=== PATIENT | male | born 1970 | race African-American/Black ===

== ENCOUNTER 2017-03-21 23:49 | Emergency (ER) | payer OTHER ==
[~2017-03-21] VITALS: Ht 175.3 cm; Wt 98.5 kg
[~2017-03-21 23:49] MED LIST: CLONAZEPAM0.5 MG PO; NORVIR100 MG PO; REMERON30 M2 PO; REYATAZ300 MG PO; TRUVADA1 TABLET PO
[2017-03-22] MEDS ORDERED: DELTASONE20 M1 PO (00:12)
[2017-03-22] MEDS ORDERED: ATARAX,VISTARIL25 MG PO (00:12)
[2017-03-22] MEDS ORDERED: EMVERM100 MG PO (00:12)
[2017-03-22 00:27] VITALS: BP 139/90
== END 2017-03-22 00:27 | disposition home or self-care (01) ==
LOC: EME 23:49
DX: L30.9 Dermatitis, unspecified (principal)
CPT/HCPCS: 99281; 99283; J7512; Q0177

== ENCOUNTER 2017-03-23 06:42 | Emergency (ER) | payer OTHER ==
[~2017-03-23] VITALS: Ht 175.3 cm; Wt 98.7 kg
[~2017-03-23 06:42] MED LIST changes: +ATARAX,VISTARIL25 MG PO; +DELTASONE20 M1 PO; +EMVERM100 MG PO
[2017-03-23 06:46] VITALS: BP 159/90
[2017-03-23 08:50] LABS: AMPHETAMINE NEGATIVE (500 ng/mL); BARBITURATES NEGATIVE (200 ng/mL); BENZODIAZEPINES NEGATIVE (150 ng/mL); COCAINE PRESUMPTIVE POSITIVE (150 ng/mL); METHADONE NEGATIVE (200 ng/mL); METHAMPHETAMINE NEGATIVE (500 ng/mL); OPIATES (MORPHINE) PRESUMPTIVE POSITIVE (100 ng/mL); PHENCYCLIDINE NEGATIVE (25 ng/mL); THC CANNABINOIDS NEGATIVE (50 ng/mL); TRICYCLIC ANTIDEPRESSANTS NEGATIVE (300 ng/mL)
[2017-03-23 08:51] LABS: ADD MEDTOX COMMENT Y; INTERNAL CONTROLS VALID? YES; OXYCODONE NEGATIVE (100 ng/mL); PROPOXYPHENE NEGATIVE (300 ng/mL)
== END 2017-03-23 08:39 | disposition home or self-care (01) ==
LOC: EME 06:42
PROVIDERS: Emergency Medicine
DX: R44.2 Other hallucinations (principal); F14.10 Cocaine abuse, uncomplicated; H57.10 Ocular pain, unspecified eye; B20 Human immunodeficiency virus [HIV] disease; F17.200 Nicotine dependence, unspecified, uncomplicated
CPT/HCPCS: 84999; 90832; 99281; 99283

== ENCOUNTER 2017-09-21 22:00 | Emergency (ER) | payer OTHER ==
[~2017-09-21] VITALS: Ht 175.3 cm; Wt 79.5 kg
[2017-09-22] MEDS ORDERED: ULTRAM50 MG PO (00:19)
[2017-09-22 00:52] VITALS: BP 128/90
== END 2017-09-22 01:00 ==
LOC: EME 22:00
PROC: 0RSJXZZ Reposition Right Shoulder Joint, External Approach (ICD-10-PCS; principal; 2017-09-21)
DX: S43.004A Unspecified dislocation of right shoulder joint, initial encounter (principal); X58.XXXA Exposure to other specified factors, initial encounter; Y92.149 Unspecified place in prison as the place of occurrence of the external cause; F17.200 Nicotine dependence, unspecified, uncomplicated
CPT/HCPCS: 73030; 99281; 99284; J3010

== ENCOUNTER 2017-10-16 22:29 | Emergency (ER) | payer OTHER ==
[~2017-10-16] VITALS: Ht 175.3 cm; Wt 81.8 kg
[~2017-10-16 22:29] MED LIST changes: +ULTRAM50 MG PO
[2017-10-16 23:44] LABS: EOSINOPHIL COUNT 0.1 K/uL (0-0.3); HEMATOCRIT 36.8 % (38.0-50.0); IMMATURE GRANULOCYTE (%) 0.2 % (0.0-0.7); INSTRUMENT ABS NEUTROPHIL CT 2.7 K/uL; LYMPHOCYTE COUNT 2.4 K/uL (1.0-2.8); MCH 27.7 PG (29.0-34.0); MCHC 33.2 G/DL (30.0-36.0); MCV 83.4 FL (86-99); MEAN PLAT.VOLUME 9.4 uM^3 (9.0-12.4); MONOCYTE COUNT 0.8 K/uL (0-0.8); NEUTROPHIL (%) 44.6 % (45-76); NEUTROPHIL COUNT 2.7 K/uL (1.8-6.4); PLATELET COUNT 331 K/uL (156-360); RBC DIS.WIDTH-CV 13.5 % (11.8-14.6); RBC DIS.WIDTH-SD 41.3 % (39-53); RED BLOOD COUNT 4.41 M/uL (4.00-5.50); WHITE BLOOD COUNT 5.9 K/uL (4.1-10.2)
[2017-10-16 23:52] LABS: CHLORIDE 104 mEq/L (99-109); POTASSIUM 3.7 mEq/L (3.7-5.4); SODIUM 142 mEq/L (136-147)
[2017-10-16 23:54] LABS: GLUCOSE 110 mg/dL (70-99)
[2017-10-16 23:55] LABS: ANION GAP 15 MEQ/L (2-14)
[2017-10-16 23:57] LABS: GFR ESTIMATE (CALCULATED) > 59 mL/min/; SERUM ETHYL ALCOHOL 176 mg/dL
[2017-10-16 23:58] LABS: UREA NITROGEN (BUN) 8 mg/dL (9-23)
[2017-10-17 06:32] LABS: ADD MEDTOX COMMENT Y; AMPHETAMINE NEGATIVE (500 ng/mL); BARBITURATES NEGATIVE (200 ng/mL); BENZODIAZEPINES PRESUMPTIVE POSITIVE (150 ng/mL); COCAINE PRESUMPTIVE POSITIVE (150 ng/mL); INTERNAL CONTROLS VALID? YES; METHADONE NEGATIVE (200 ng/mL); METHAMPHETAMINE NEGATIVE (500 ng/mL); OPIATES (MORPHINE) PRESUMPTIVE POSITIVE (100 ng/mL); OXYCODONE NEGATIVE (100 ng/mL); PHENCYCLIDINE NEGATIVE (25 ng/mL); PROPOXYPHENE NEGATIVE (300 ng/mL); THC CANNABINOIDS NEGATIVE (50 ng/mL); TRICYCLIC ANTIDEPRESSANTS NEGATIVE (300 ng/mL)
[2017-10-17 07:19] LABS: BENZODIAZEPINES QUANT VALUE 0 NG/ML; BENZODIAZEPINES, URINE SCREEN Negative (200 ng/mL)
[2017-10-17 14:29] VITALS: BP 143/83
== END 2017-10-17 14:31 | disposition home or self-care (01) ==
LOC: EME 22:29
PROVIDERS: Emergency Medicine
DX: F10.129 Alcohol abuse with intoxication, unspecified (principal); S42.031A Displaced fracture of lateral end of right clavicle, initial encounter for closed fracture; X58.XXXA Exposure to other specified factors, initial encounter; F19.94 Other psychoactive substance use, unspecified with psychoactive substance-induced mood disorder; F11.90 Opioid use, unspecified, uncomplicated; F32.9 Major depressive disorder, single episode, unspecified; Y90.6 Blood alcohol level of 120-199 mg/100 ml; Z59.0 Homelessness; F17.200 Nicotine dependence, unspecified, uncomplicated
CPT/HCPCS: 73030; 80048; 84999; 85025; 90837; 99281; 99283; G0480; L3650

== ENCOUNTER 2017-10-31 21:38 | Inpatient (IN) | payer OTHER ==
[~2017-10-31] VITALS: Ht 175.3 cm; Wt 76.0 kg
[2017-10-31 22:02] LABS: HEMATOCRIT 41.1 % (38.0-50.0); MCH 28.6 PG (29.0-34.0); MCHC 34.1 G/DL (30.0-36.0); RBC DIS.WIDTH-CV 14.6 % (11.8-14.6); RBC DIS.WIDTH-SD 44.9 % (39-53); RED BLOOD COUNT 4.89 M/uL (4.00-5.50); WHITE BLOOD COUNT 4.9 K/uL (4.1-10.2)
[2017-10-31 22:03] LABS: PLATELET COUNT 444 K/uL (156-360)
[2017-10-31 22:10] LABS: CHLORIDE 113 mEq/L (99-109); POTASSIUM 3.9 mEq/L (3.7-5.4); SODIUM 147 mEq/L (136-147)
[2017-10-31 22:12] LABS: GLUCOSE 118 mg/dL (70-99)
[2017-10-31 22:15] LABS: SERUM ETHYL ALCOHOL 212 mg/dL
[2017-10-31 22:16] LABS: GFR ESTIMATE (CALCULATED) > 59 mL/min/ (58.99-99999)
[2017-10-31 22:17] LABS: UREA NITROGEN (BUN) 10 mg/dL (9-23)
[2017-11-01 00:44] LABS: AMPHETAMINE NEGATIVE (500 ng/mL); BARBITURATES NEGATIVE (200 ng/mL); BENZODIAZEPINES PRESUMPTIVE POSITIVE (150 ng/mL); BUPRENORPHINE NEGATIVE (10 ng/mL); COCAINE PRESUMPTIVE POSITIVE (150 ng/mL); METHADONE NEGATIVE (200 ng/mL); METHAMPHETAMINE NEGATIVE (500 ng/mL); OPIATES (MORPHINE) NEGATIVE (100 ng/mL); OXYCODONE NEGATIVE (100 ng/mL); PHENCYCLIDINE NEGATIVE (25 ng/mL); PROPOXYPHENE NEGATIVE (300 ng/mL); THC CANNABINOIDS NEGATIVE (50 ng/mL); TRICYCLIC ANTIDEPRESSANTS NEGATIVE (300 ng/mL)
[2017-11-01 01:18] LABS: BENZODIAZEPINES, URINE SCREEN Negative (200 ng/mL)
[2017-11-01 06:11] VITALS: BP 126/84
[2017-11-01 08:02] VITALS: BP 121/73
[2017-11-01] MEDS ORDERED: STRIBILD TABLE1 EACH PO (09:10)
[2017-11-01 15:35] VITALS: BP 118/63
[2017-11-02 07:55] VITALS: BP 125/71
[2017-11-02 15:30] VITALS: BP 133/65
[2017-11-03 08:02] VITALS: BP 108/63
[2017-11-03] MEDS ORDERED: STRIBILD TABLE1 EACH PO (08:56)
[2017-11-03] MEDS ORDERED: FOLIC ACID1 MG PO (08:56)
[2017-11-03] MEDS ORDERED: AMOXICILLIN500 MG PO (08:56)
[2017-11-03] MEDS ORDERED: MIRTAZAPINE30 MG PO (08:56)
[2017-11-03] MEDS ORDERED: Thiamine,Vitamin B1 PO (08:56)
[2017-11-03] MEDS ORDERED: KETOROLAC TROME10 MG PO (09:02)
[2017-11-03 15:47] VITALS: BP 146/84
[2017-11-04 08:03] VITALS: BP 130/75
== END 2017-11-04 15:07 | disposition home or self-care (01) | DRG 881 ==
LOC: EME 21:38 → 1WEST 11-01 04:39 → EDOF 11-01 04:39 → ENRESERV 11-01 05:08 → 1WEST 11-01 05:28
DX: F32.9 Major depressive disorder, single episode, unspecified (principal); R45.851 Suicidal ideations; M25.511 Pain in right shoulder; F14.20 Cocaine dependence, uncomplicated; J02.9 Acute pharyngitis, unspecified; Z59.0 Homelessness; I10 Essential (primary) hypertension; F41.9 Anxiety disorder, unspecified; Z21 Asymptomatic human immunodeficiency virus [HIV] infection status; F17.200 Nicotine dependence, unspecified, uncomplicated; F10.229 Alcohol dependence with intoxication, unspecified; G47.00 Insomnia, unspecified
CPT/HCPCS: 80048; 84999; 85027; 90837; 97150 GO; 97165 GO; 99281; 99285; G0480; Q0177

== ENCOUNTER 2017-11-11 03:57 | Inpatient (IN) | payer OTHER ==
[~2017-11-11] VITALS: Ht 175.3 cm; Wt 76.9 kg
[~2017-11-11 03:57] MED LIST changes: +AMOXICILLIN500 MG PO; +FOLIC ACID1 MG PO; +KETOROLAC TROME10 MG PO; +MIRTAZAPINE30 MG PO; +STRIBILD TABLE1 EACH PO; +Thiamine,Vitamin B1 PO
[2017-11-11 04:14] LABS: BICARBONATE 17.8 mEq/L (22-26); CARBOXY HGB 4.2 % (0-5); METHEMOGLOBIN 0 % (0-1.5); PCO2 79 mm Hg (35-45); PO2 86 mm Hg (80-100)
[2017-11-11 04:15] LABS: COMMENTS - BLOOD GASES C+; DEVICE VENT; FI02 100 %; MECHANICAL RATE 16 resp/min; MODE ACVC; PEEP 5 CM/H20; SITE RR; TIDAL VOLUME 500 ML; TOTAL RESP RATE 16 resp/min; pH 6.96 (7.35-7.45)
[2017-11-11 04:47] LABS: ALBUMIN 3.6 g/dL (3.2-4.8); CHLORIDE 106 mEq/L (99-109); HEMATOCRIT 40.2 % (38.0-50.0); HEMOGLOBIN 12.8 G/DL (12.5-16.6); MCH 28.6 PG (29.0-34.0); MCHC 31.8 G/DL (30.0-36.0); POTASSIUM 3.6 mEq/L (3.7-5.4); RBC DIS.WIDTH-CV 14.6 % (11.8-14.6); RBC DIS.WIDTH-SD 48.5 % (39-53); RED BLOOD COUNT 4.47 M/uL (4.00-5.50); SODIUM 145 mEq/L (136-147); WHITE BLOOD COUNT 9.3 K/uL (4.1-10.2)
[2017-11-11 04:50] LABS: GLUCOSE 249 mg/dL (70-99); MCV 89.9 FL (86-99)
[2017-11-11 04:51] LABS: TOTAL BILIRUBIN 0.2 mg/dL (0.0-1.0)
[2017-11-11 04:53] LABS: CREATININE 1.5 mg/dL (0.6-1.3); GFR ESTIMATE (CALCULATED) > 59 mL/min/ (58.99-99999); SERUM ETHYL ALCOHOL 244 mg/dL
[2017-11-11 04:54] LABS: ALKALINE PHOSPHATASE 77 IU/L (3-129)
[2017-11-11 04:55] LABS: AST (GOT) 61 IU/L (2-34); UREA NITROGEN (BUN) 9 mg/dL (9-23)
[2017-11-11 04:57] LABS: ACETAMINOPHEN (TYLENOL) < 10 mcg/mL (10-30); ALT (GPT) 52 IU/L (3-49); SALICYLATE < 5.0 MG/DL (15-30)
[2017-11-11 04:58] LABS: LIPASE 174 U/L (1.0-51.0)
[2017-11-11 04:59] LABS: TROP-I INTERPRETATION NEGATIVE; TROPONIN-I < 0.01 ng/mL (0.0-0.30)
[2017-11-11 05:49] LABS: BASE EXCESS -1.1 mEq/L (-3 to +3); BICARBONATE 23.5 mEq/L (22-26); PCO2 38 mm Hg (35-45); PO2 > 583 mm Hg (80-100)
[2017-11-11 05:50] LABS: COMMENTS - BLOOD GASES C+; DEVICE VENT; FI02 100 %; MECHANICAL RATE 24 resp/min; MODE A/C; PEEP 8 CM/H20; SITE RR; TIDAL VOLUME 500 ML; TOTAL RESP RATE 34 resp/min
[2017-11-11 06:01] LABS: PLAT.SUFFICIENCY INCREASED; PLATELET CLUMPS PRESENT - PLATELET COUNT APPEARS INCREASED
[2017-11-11 06:02] LABS: PLATELET COUNT UNABLE TO REPORT K/uL (156-360)
[2017-11-11 07:28] LABS: APPEARANCE CLEAR ((CLEAR)); BILIRUBIN NEGATIVE; BLOOD SMALL; COLOR STRAW ((YELLOW)); GLUCOSE (STRIP) NEGATIVE; KETONES NEGATIVE; LEUKOCYTES NEGATIVE; NITRITE NEGATIVE; PROTEIN (STRIP) NEGATIVE; SPECIFIC GRAVITY 1.002 (1.000-1.030); UROBILINOGEN 0.2 MG/DL (0.2-1.0)
[2017-11-11 07:39] LABS: BACTERIA RARE /HPF; EPITHELIAL CELLS NONE SEEN /HPF; MUCUS NONE SEEN /LPF; RED BLOOD CELLS 0-5 /HPF (0-5); UCUL ADDED? NO; WHITE BLOOD CELLS 0-5 /HPF (0-5)
[2017-11-11 07:46] LABS: AMPHETAMINE NEGATIVE (500 ng/mL); BARBITURATES NEGATIVE (200 ng/mL); BENZODIAZEPINES PRESUMPTIVE POSITIVE (150 ng/mL); BUPRENORPHINE NEGATIVE (10 ng/mL); COCAINE NEGATIVE (150 ng/mL); METHADONE NEGATIVE (200 ng/mL); METHAMPHETAMINE NEGATIVE (500 ng/mL); OPIATES (MORPHINE) NEGATIVE (100 ng/mL); OXYCODONE NEGATIVE (100 ng/mL); PHENCYCLIDINE NEGATIVE (25 ng/mL); PROPOXYPHENE NEGATIVE (300 ng/mL); THC CANNABINOIDS NEGATIVE (50 ng/mL); TRICYCLIC ANTIDEPRESSANTS NEGATIVE (300 ng/mL)
[2017-11-11 08:00] VITALS: BP 161/104
[2017-11-11 08:23] LABS: BENZODIAZEPINES, URINE SCREEN POSITIVE (200 ng/mL)
[2017-11-11 09:00] VITALS: BP 181/114
[2017-11-11 10:00] VITALS: BP 176/111
[2017-11-11 12:00] VITALS: BP 176/111
[2017-11-11 12:05] LABS: BASOPHIL (%) 0.1 % (0-1); EOSINOPHIL (%) 0 % (0-5); HEMATOCRIT 44.8 % (38.0-50.0); HEMOGLOBIN 14.6 G/DL (12.5-16.6); IMMATURE GRANULOCYTE (%) 0.4 % (0.0-0.7); LYMPHOCYTE (%) 5.5 % (15-42); LYMPHOCYTE COUNT 1.1 K/uL (1.0-2.8); MCH 28.1 PG (29.0-34.0); MCHC 32.6 G/DL (30.0-36.0); MCV 86.3 FL (86-99); MONOCYTE (%) 10.6 % (3-12); MONOCYTE COUNT 2.2 K/uL (0-0.8); NEUTROPHIL (%) 83.4 % (45-76); NEUTROPHIL COUNT 16.8 K/uL (1.8-6.4); RBC DIS.WIDTH-CV 14.9 % (11.8-14.6); RBC DIS.WIDTH-SD 47.4 % (39-53); RED BLOOD COUNT 5.19 M/uL (4.00-5.50); WHITE BLOOD COUNT 20.2 K/uL (4.1-10.2)
[2017-11-11 12:10] LABS: PLATELET COUNT 561 K/uL (156-360)
[2017-11-11 12:15] LABS: BASE EXCESS -8.2 mEq/L (-3 to +3); CARBOXY HGB 1.4 % (0-5); METHEMOGLOBIN 1.1 % (0-1.5)
[2017-11-11 12:16] LABS: PCO2 50 mm Hg (35-45); PO2 192 mm Hg (80-100); SITE ALINE; pH 7.21 (7.35-7.45)
[2017-11-11 12:17] LABS: DEVICE 840 PB; FI02 40 %; INSPIRATION TIME 0.8 seconds; MECHANICAL RATE 12 resp/min; MODE A/C; PEEP 10 CM/H20; TIDAL VOLUME 600 ML; TOTAL RESP RATE 12 resp/min
[2017-11-11 12:24] LABS: PTT 27.9 SEC (25-37)
[2017-11-11 12:29] LABS: TROP-I INTERPRETATION POSITIVE; TROPONIN-I 1.23 ng/mL (0.0-0.30)
[2017-11-11 12:35] LABS: CHLORIDE 111 MEQ/L (99-109); MAGNESIUM 1.8 mg/dl (1.3-2.7); SODIUM 148 MEQ/L (136-147)
[2017-11-11 12:40] LABS: GFR ESTIMATE (CALCULATED) > 59 mL/min/ (58.99-99999); GLUCOSE 138 mg/dL (70-99); PHOSPHORUS 4.8 mg/dL (2.5-4.9); UREA NITROGEN (BUN) 16 mg/dL (9-23)
[2017-11-11 13:35] LABS: BASE EXCESS -8.1 mEq/L (-3 to +3); BICARBONATE 18.4 mEq/L (22-26); CARBOXY HGB 1.3 % (0-5); METHEMOGLOBIN 1.4 % (0-1.5); PO2 206 mm Hg (80-100)
[2017-11-11 13:37] LABS: COMMENTS - BLOOD GASES C+; DEVICE PB 840; MECHANICAL RATE 12 resp/min; MODE A/C; PCO2 40 mm Hg (35-45); SITE ALINE; TIDAL VOLUME 700 ML; TOTAL RESP RATE 16 resp/min; pH 7.27 (7.35-7.45)
[2017-11-11 13:38] LABS: PEEP 10 CM/H20
[2017-11-11 14:21] LABS: BASE EXCESS -8.7 mEq/L (-3 to +3); BICARBONATE 18.8 mEq/L (22-26); CARBOXY HGB 1.4 % (0-5); METHEMOGLOBIN 1.4 % (0-1.5); PO2 214 mm Hg (80-100)
[2017-11-11 14:22] LABS: PCO2 45 mm Hg (35-45); SITE ALINE; pH 7.23 (7.35-7.45)
[2017-11-11 14:23] LABS: DEVICE PB 840; FI02 40 %; INSPIRATION TIME 0.9 seconds; MECHANICAL RATE 12 resp/min; MODE A/C; PEEP 10 CM/H20; TIDAL VOLUME 700 ML; TOTAL RESP RATE 12 resp/min
[2017-11-11 15:58] LABS: BICARBONATE 20.9 mEq/L (22-26); CARBOXY HGB 1.6 % (0-5); DEVICE VENT; FI02 40 %; MECHANICAL RATE 15 resp/min; METHEMOGLOBIN 1.4 % (0-1.5); MODE AC; PCO2 37 mm Hg (35-45); PEEP 10 CM/H20; PO2 211 mm Hg (80-100); SITE ALINE; TIDAL VOLUME 700 ML; TOTAL RESP RATE 15 resp/min; pH 7.36 (7.35-7.45)
[2017-11-11 18:00] VITALS: BP 143/80
[2017-11-11 18:17] LABS: BASOPHIL (%) 0.1 % (0-1); EOSINOPHIL (%) 0.1 % (0-5); HEMATOCRIT 43.1 % (38.0-50.0); HEMOGLOBIN 14.4 G/DL (12.5-16.6); IMMATURE GRANULOCYTE (%) 0.6 % (0.0-0.7); LYMPHOCYTE (%) 6.2 % (15-42); LYMPHOCYTE COUNT 1.2 K/uL (1.0-2.8); MCH 28.2 PG (29.0-34.0); MCHC 33.4 G/DL (30.0-36.0); MCV 84.3 FL (86-99); MONOCYTE COUNT 1.2 K/uL (0-0.8); NEUTROPHIL COUNT 16.8 K/uL (1.8-6.4); PLATELET COUNT 519 K/uL (156-360); RBC DIS.WIDTH-CV 14.8 % (11.8-14.6); RBC DIS.WIDTH-SD 45.3 % (39-53); RED BLOOD COUNT 5.11 M/uL (4.00-5.50); WHITE BLOOD COUNT 19.3 K/uL (4.1-10.2)
[2017-11-11 18:33] LABS: INTER. NORMALIZED RATIO 1.1
[2017-11-11 18:38] LABS: CHLORIDE 107 MEQ/L (99-109); POTASSIUM 3.3 MEQ/L (3.7-5.4); SODIUM 144 MEQ/L (136-147)
[2017-11-11 18:39] LABS: MAGNESIUM 1.5 mg/dl (1.3-2.7)
[2017-11-11 18:44] LABS: CREATININE 0.9 MG/DL (0.6-1.3); GFR ESTIMATE (CALCULATED) > 59 mL/min/ (58.99-99999); UREA NITROGEN (BUN) 19 mg/dL (9-23)
[2017-11-11 18:54] LABS: GLUCOSE 231 mg/dL (70-99); PHOSPHORUS 2.9 mg/dL (2.5-4.9)
[2017-11-11 19:32] LABS: TROP-I INTERPRETATION POSITIVE; TROPONIN-I 1.25 ng/mL (0.0-0.30)
[2017-11-11 20:00] VITALS: BP 138/81
[2017-11-11 21:55] LABS: BASE EXCESS -8.8 mEq/L (-3 to +3); BICARBONATE 17.4 mEq/L (22-26); CARBOXY HGB 1.7 % (0-5); METHEMOGLOBIN 1.3 % (0-1.5); PCO2 38 mm Hg (35-45)
[2017-11-11 21:56] LABS: DEVICE VENT; FI02 40 %; INSPIRATION TIME 0.9 seconds; MECHANICAL RATE 15 resp/min; MODE AC; PEEP 10 CM/H20; PO2 100 mm Hg (80-100); SITE ALINE; TIDAL VOLUME 700 ML; TOTAL RESP RATE 15 resp/min; pH 7.27 (7.35-7.45)
[2017-11-12] VITALS (7 sets, daily range): BP systolic 111–153; BP diastolic 75–91
[2017-11-12 00:46] LABS: BASOPHIL (%) 0.1 % (0-1); EOSINOPHIL (%) 0 % (0-5); HEMATOCRIT 45.4 % (38.0-50.0); HEMOGLOBIN 14.7 G/DL (12.5-16.6); IMMATURE GRANULOCYTE (%) 0.9 % (0.0-0.7); LYMPHOCYTE (%) 7.9 % (15-42); LYMPHOCYTE COUNT 1.5 K/uL (1.0-2.8); MCH 27.7 PG (29.0-34.0); MCHC 32.4 G/DL (30.0-36.0); MCV 85.5 FL (86-99); MONOCYTE (%) 7.9 % (3-12); MONOCYTE COUNT 1.5 K/uL (0-0.8); NEUTROPHIL (%) 83.2 % (45-76); NEUTROPHIL COUNT 15.4 K/uL (1.8-6.4); PLATELET COUNT 648 K/uL (156-360); RBC DIS.WIDTH-CV 15.2 % (11.8-14.6); RBC DIS.WIDTH-SD 47.6 % (39-53); RED BLOOD COUNT 5.31 M/uL (4.00-5.50); WHITE BLOOD COUNT 18.5 K/uL (4.1-10.2)
[2017-11-12 00:50] LABS: CHLORIDE 109 mEq/L (99-109); POTASSIUM 3.6 mEq/L (3.7-5.4); SODIUM 147 mEq/L (136-147)
[2017-11-12 00:51] LABS: MAGNESIUM 1.8 mg/dL (1.3-2.7)
[2017-11-12 00:52] LABS: GLUCOSE 319 mg/dL (70-99)
[2017-11-12 00:55] LABS: PHOSPHORUS 3.5 mg/dL (2.5-4.9)
[2017-11-12 00:57] LABS: UREA NITROGEN (BUN) 22 mg/dL (9-23)
[2017-11-12 01:01] LABS: TROP-I INTERPRETATION POSITIVE
[2017-11-12 01:06] LABS: CREATININE 1.4 mg/dL (0.6-1.3); GFR ESTIMATE (CALCULATED) > 59 mL/min/ (58.99-99999)
[2017-11-12 01:08] LABS: TROPONIN-I 0.93 ng/mL (0.0-0.30)
[2017-11-12 01:20] LABS: INTER. NORMALIZED RATIO 1.1
[2017-11-12 03:39] LABS: BASE EXCESS -10.5 mEq/L (-3 to +3); BICARBONATE 14.1 mEq/L (22-26); CARBOXY HGB 1.3 % (0-5); DEVICE VENT; FI02 30 %; INSPIRATION TIME 0.9 seconds; MECHANICAL RATE 20 resp/min; METHEMOGLOBIN 1.5 % (0-1.5); MODE ACVC+; PCO2 28 mm Hg (35-45); PEEP 8 CM/H20; PO2 171 mm Hg (80-100); SITE ALINE; TIDAL VOLUME 700 ML; TOTAL RESP RATE 20 resp/min; pH 7.31 (7.35-7.45)
[2017-11-12 05:48] LABS: BASOPHIL (%) 0.1 % (0-1); EOSINOPHIL (%) 0 % (0-5); HEMATOCRIT 43.5 % (38.0-50.0); HEMOGLOBIN 14.5 G/DL (12.5-16.6); IMMATURE GRANULOCYTE (%) 0.6 % (0.0-0.7); LYMPHOCYTE (%) 7.3 % (15-42); LYMPHOCYTE COUNT 1.2 K/uL (1.0-2.8); MCH 28.2 PG (29.0-34.0); MCHC 33.3 G/DL (30.0-36.0); MCV 84.6 FL (86-99); MONOCYTE (%) 6.8 % (3-12); MONOCYTE COUNT 1.2 K/uL (0-0.8); NEUTROPHIL (%) 85.2 % (45-76); NEUTROPHIL COUNT 14.5 K/uL (1.8-6.4); PLATELET COUNT 506 K/uL (156-360); RBC DIS.WIDTH-CV 15.1 % (11.8-14.6); RBC DIS.WIDTH-SD 46.9 % (39-53); RED BLOOD COUNT 5.14 M/uL (4.00-5.50); WHITE BLOOD COUNT 17.1 K/uL (4.1-10.2)
[2017-11-12 06:25] LABS: TROP-I INTERPRETATION POSITIVE
[2017-11-12 06:26] LABS: INTER. NORMALIZED RATIO 1.1
[2017-11-12 06:43] LABS: PTT 25.8 SEC (25-37)
[2017-11-12 06:46] LABS: CHLORIDE 109 MEQ/L (99-109); CREATININE 1.1 MG/DL (0.6-1.3); GFR ESTIMATE (CALCULATED) > 59 mL/min/ (58.99-99999); GLUCOSE 222 mg/dL (70-99); PHOSPHORUS 2.5 mg/dL (2.5-4.9); POTASSIUM 4.3 MEQ/L (3.7-5.4); SODIUM 144 MEQ/L (136-147); UREA NITROGEN (BUN) 25 mg/dL (9-23)
[2017-11-12 06:52] LABS: MAGNESIUM 1.8 mg/dl (1.3-2.7)
[2017-11-12 10:55] LABS: COMMENTS - BLOOD GASES C+; DEVICE PB 840; FI02 30 %; INSPIRATION TIME 0.9 seconds; MECHANICAL RATE 20 resp/min; MODE A/C; SITE ALINE; TIDAL VOLUME 700 ML; TOTAL RESP RATE 20 resp/min
[2017-11-12 10:56] LABS: BICARBONATE 21.7 mEq/L (22-26); CARBOXY HGB 1.4 % (0-5); METHEMOGLOBIN 1.4 % (0-1.5); PCO2 26 mm Hg (35-45); PEEP 8 CM/H20; PO2 138 mm Hg (80-100); pH 7.53 (7.35-7.45)
[2017-11-12 10:57] LABS: BASE EXCESS 0.5 mEq/L (-3 to +3)
[2017-11-12 11:59] LABS: BASOPHIL (%) 0.1 % (0-1); EOSINOPHIL (%) 0 % (0-5); HEMATOCRIT 40.7 % (38.0-50.0); HEMOGLOBIN 13.6 G/DL (12.5-16.6); IMMATURE GRANULOCYTE (%) 0.5 % (0.0-0.7); LYMPHOCYTE (%) 5.8 % (15-42); LYMPHOCYTE COUNT 1.1 K/uL (1.0-2.8); MCH 27.6 PG (29.0-34.0); MCHC 33.4 G/DL (30.0-36.0); MCV 82.7 FL (86-99); MONOCYTE (%) 9.3 % (3-12); MONOCYTE COUNT 1.7 K/uL (0-0.8); NEUTROPHIL (%) 84.3 % (45-76); NEUTROPHIL COUNT 15.7 K/uL (1.8-6.4); PLATELET COUNT 468 K/uL (156-360); RBC DIS.WIDTH-SD 45.4 % (39-53); RED BLOOD COUNT 4.92 M/uL (4.00-5.50); WHITE BLOOD COUNT 18.6 K/uL (4.1-10.2)
[2017-11-12 12:04] LABS: INTER. NORMALIZED RATIO 1.1
[2017-11-12 12:13] LABS: CHLORIDE 117 MEQ/L (99-109); MAGNESIUM 1.6 mg/dl (1.3-2.7); SODIUM 150 MEQ/L (136-147)
[2017-11-12 12:15] LABS: POTASSIUM 3.3 MEQ/L (3.7-5.4)
[2017-11-12 12:19] LABS: CREATININE 0.8 MG/DL (0.6-1.3); GFR ESTIMATE (CALCULATED) > 59 mL/min/ (58.99-99999); PHOSPHORUS 2.3 mg/dL (2.5-4.9); UREA NITROGEN (BUN) 25 mg/dL (9-23)
[2017-11-12 12:28] LABS: TROP-I INTERPRETATION POSITIVE; TROPONIN-I 0.64 ng/mL (0.0-0.30)
[2017-11-12 12:29] LABS: GLUCOSE 108 mg/dL (70-99)
[2017-11-12 12:38] LABS: ANTI-HEPATITIS A VIRUS (IGM) Nonreactive; HEPATITIS B SURFACE ANTIGEN Nonreactive
[2017-11-12 12:39] LABS: ANTI-HEPATITIS B CORE (IGM) Nonreactive
[2017-11-12 13:11] LABS: HEPATITIS C ANTIBODY REACTIVE; HIV-1/2 AB/AG COMBO REACTIVE
[2017-11-12 17:43] LABS: BASOPHIL (%) 0.1 % (0-1); EOSINOPHIL (%) 0 % (0-5); HEMATOCRIT 39.5 % (38.0-50.0); HEMOGLOBIN 13.3 G/DL (12.5-16.6); IMMATURE GRANULOCYTE (%) 0.7 % (0.0-0.7); LYMPHOCYTE (%) 3.9 % (15-42); LYMPHOCYTE COUNT 0.9 K/uL (1.0-2.8); MCH 27.6 PG (29.0-34.0); MCHC 33.7 G/DL (30.0-36.0); MONOCYTE (%) 6.6 % (3-12); MONOCYTE COUNT 1.6 K/uL (0-0.8); NEUTROPHIL (%) 88.7 % (45-76); NEUTROPHIL COUNT 20.7 K/uL (1.8-6.4); PLATELET COUNT 466 K/uL (156-360); RBC DIS.WIDTH-CV 14.7 % (11.8-14.6); RBC DIS.WIDTH-SD 44.3 % (39-53); RED BLOOD COUNT 4.82 M/uL (4.00-5.50); WHITE BLOOD COUNT 23.4 K/uL (4.1-10.2)
[2017-11-12 18:03] LABS: INTER. NORMALIZED RATIO 1.1
[2017-11-12 18:10] LABS: CHLORIDE 118 MEQ/L (99-109); POTASSIUM 3.6 MEQ/L (3.7-5.4); SODIUM 148 MEQ/L (136-147)
[2017-11-12 18:19] LABS: MAGNESIUM 2.3 mg/dl (1.3-2.7); TROP-I INTERPRETATION INDETERMINATE; TROPONIN-I 0.48 ng/mL (0.0-0.30)
[2017-11-12 18:20] LABS: CREATININE 0.7 MG/DL (0.6-1.3); GFR ESTIMATE (CALCULATED) > 59 mL/min/ (58.99-99999); GLUCOSE 124 mg/dL (70-99); UREA NITROGEN (BUN) 21 mg/dL (9-23)
[2017-11-12 18:28] LABS: PHOSPHORUS 3.5 mg/dL (2.5-4.9)
[2017-11-12 20:39] LABS: BASE EXCESS -1.7 mEq/L (-3 to +3); BICARBONATE 19.9 mEq/L (22-26); CARBOXY HGB 1.2 % (0-5); METHEMOGLOBIN 1.5 % (0-1.5); PCO2 25 mm Hg (35-45); PO2 144 mm Hg (80-100); pH 7.51 (7.35-7.45)
[2017-11-12 20:40] LABS: DEVICE VENT; FI02 30 %; INSPIRATION TIME 0.9 seconds; MECHANICAL RATE 20 resp/min; SITE ALINE; TOTAL RESP RATE 20 resp/min
[2017-11-12 20:41] LABS: MODE ACVC+; PEEP 8 CM/H20; TIDAL VOLUME 700 ML
[2017-11-13] VITALS (11 sets, daily range): BP systolic 112–139; BP diastolic 77–87
[2017-11-13 00:25] LABS: BASOPHIL (%) 0.1 % (0-1); EOSINOPHIL (%) 0 % (0-5); HEMATOCRIT 38.8 % (38.0-50.0); HEMOGLOBIN 13.1 G/DL (12.5-16.6); IMMATURE GRANULOCYTE (%) 0.8 % (0.0-0.7); LYMPHOCYTE (%) 2.6 % (15-42); LYMPHOCYTE COUNT 0.6 K/uL (1.0-2.8); MCH 27.8 PG (29.0-34.0); MCHC 33.8 G/DL (30.0-36.0); MCV 82.4 FL (86-99); MONOCYTE (%) 5.3 % (3-12); MONOCYTE COUNT 1.2 K/uL (0-0.8); NEUTROPHIL (%) 91.2 % (45-76); NEUTROPHIL COUNT 20.7 K/uL (1.8-6.4); PLATELET COUNT 452 K/uL (156-360); RBC DIS.WIDTH-SD 44.9 % (39-53); RED BLOOD COUNT 4.71 M/uL (4.00-5.50); WHITE BLOOD COUNT 22.7 K/uL (4.1-10.2)
[2017-11-13 00:30] LABS: INTER. NORMALIZED RATIO 1.1
[2017-11-13 00:38] LABS: CHLORIDE 116 mEq/L (99-109); POTASSIUM 4.2 mEq/L (3.7-5.4); SODIUM 144 mEq/L (136-147)
[2017-11-13 00:40] LABS: GLUCOSE 100 mg/dL (70-99)
[2017-11-13 00:44] LABS: CREATININE 0.7 mg/dL (0.6-1.3); GFR ESTIMATE (CALCULATED) > 59 mL/min/ (58.99-99999); PHOSPHORUS 4.1 mg/dL (2.5-4.9)
[2017-11-13 00:45] LABS: UREA NITROGEN (BUN) 20 mg/dL (9-23)
[2017-11-13 00:48] LABS: MAGNESIUM 2.1 mg/dL (1.3-2.7); TROP-I INTERPRETATION INDETERMINATE; TROPONIN-I 0.42 ng/mL (0.0-0.30)
[2017-11-13 05:38] LABS: BASOPHIL (%) 0.1 % (0-1); EOSINOPHIL (%) 0 % (0-5); HEMATOCRIT 36.7 % (38.0-50.0); HEMOGLOBIN 12.3 G/DL (12.5-16.6); IMMATURE GRANULOCYTE (%) 0.5 % (0.0-0.7); LYMPHOCYTE (%) 3.7 % (15-42); LYMPHOCYTE COUNT 0.7 K/uL (1.0-2.8); MCH 27.8 PG (29.0-34.0); MCHC 33.5 G/DL (30.0-36.0); MCV 82.8 FL (86-99); MONOCYTE (%) 5.1 % (3-12); NEUTROPHIL (%) 90.6 % (45-76); NEUTROPHIL COUNT 17.8 K/uL (1.8-6.4); PLATELET COUNT 416 K/uL (156-360); RBC DIS.WIDTH-CV 15.2 % (11.8-14.6); RBC DIS.WIDTH-SD 46.2 % (39-53); RED BLOOD COUNT 4.43 M/uL (4.00-5.50); WHITE BLOOD COUNT 19.6 K/uL (4.1-10.2)
[2017-11-13 06:01] LABS: TROP-I INTERPRETATION INDETERMINATE; TROPONIN-I 0.43 ng/mL (0.0-0.30)
[2017-11-13 06:05] LABS: INTER. NORMALIZED RATIO 1.1
[2017-11-13 06:11] LABS: CHLORIDE 118 MEQ/L (99-109); CREATININE 0.8 MG/DL (0.6-1.3); GFR ESTIMATE (CALCULATED) > 59 mL/min/ (58.99-99999); GLUCOSE 120 mg/dL (70-99); MAGNESIUM 2.1 mg/dl (1.3-2.7); PHOSPHORUS 4.1 mg/dL (2.5-4.9); POTASSIUM 4.1 MEQ/L (3.7-5.4); SODIUM 149 MEQ/L (136-147); UREA NITROGEN (BUN) 18 mg/dL (9-23)
[2017-11-13 12:27] LABS: BASOPHIL (%) 0.1 % (0-1); EOSINOPHIL (%) 0 % (0-5); HEMOGLOBIN 11.7 G/DL (12.5-16.6); IMMATURE GRANULOCYTE (%) 0.7 % (0.0-0.7); LYMPHOCYTE (%) 5.4 % (15-42); LYMPHOCYTE COUNT 0.9 K/uL (1.0-2.8); MCH 28.6 PG (29.0-34.0); MCHC 34.4 G/DL (30.0-36.0); MCV 83.1 FL (86-99); MONOCYTE (%) 5.2 % (3-12); MONOCYTE COUNT 0.9 K/uL (0-0.8); NEUTROPHIL (%) 88.6 % (45-76); NEUTROPHIL COUNT 14.9 K/uL (1.8-6.4); PLATELET COUNT 351 K/uL (156-360); RBC DIS.WIDTH-CV 15.3 % (11.8-14.6); RBC DIS.WIDTH-SD 46.2 % (39-53); RED BLOOD COUNT 4.09 M/uL (4.00-5.50); WHITE BLOOD COUNT 16.8 K/uL (4.1-10.2)
[2017-11-13 12:40] LABS: INTER. NORMALIZED RATIO 1.2
[2017-11-13 12:52] LABS: TROP-I INTERPRETATION INDETERMINATE; TROPONIN-I 0.31 ng/mL (0.0-0.30)
[2017-11-13 12:59] LABS: CHLORIDE 115 MEQ/L (99-109); GFR ESTIMATE (CALCULATED) > 59 mL/min/ (58.99-99999); GLUCOSE 111 mg/dL (70-99); PHOSPHORUS 3.8 mg/dL (2.5-4.9); POTASSIUM 4.1 MEQ/L (3.7-5.4); SODIUM 146 MEQ/L (136-147); UREA NITROGEN (BUN) 18 mg/dL (9-23)
[2017-11-13 18:16] LABS: BASOPHIL (%) 0.1 % (0-1); EOSINOPHIL (%) 0 % (0-5); HEMATOCRIT 36.1 % (38.0-50.0); HEMOGLOBIN 12.2 G/DL (12.5-16.6); IMMATURE GRANULOCYTE (%) 0.4 % (0.0-0.7); LYMPHOCYTE (%) 6.5 % (15-42); MCH 28.6 PG (29.0-34.0); MCHC 33.8 G/DL (30.0-36.0); MCV 84.5 FL (86-99); MONOCYTE (%) 6.1 % (3-12); NEUTROPHIL (%) 86.9 % (45-76); NEUTROPHIL COUNT 13.6 K/uL (1.8-6.4); PLATELET COUNT 316 K/uL (156-360); RBC DIS.WIDTH-CV 15.6 % (11.8-14.6); RBC DIS.WIDTH-SD 48.2 % (39-53); RED BLOOD COUNT 4.27 M/uL (4.00-5.50); WHITE BLOOD COUNT 15.6 K/uL (4.1-10.2)
[2017-11-13 18:21] LABS: INTER. NORMALIZED RATIO 1.2
[2017-11-13 18:35] LABS: ALBUMIN 2.9 G/DL (3.2-4.8); CHLORIDE 111 MEQ/L (99-109); POTASSIUM 3.7 MEQ/L (3.7-5.4); SODIUM 143 MEQ/L (136-147); TOTAL BILIRUBIN 0.2 MG/DL (0.0-1.0)
[2017-11-13 18:40] LABS: ALKALINE PHOSPHATASE 54 IU/L (3-129); ALT (GPT) 32 IU/L (3-49); AST (GOT) 77 IU/L (2-34); CREATININE 1.1 MG/DL (0.6-1.3); GFR ESTIMATE (CALCULATED) > 59 mL/min/ (58.99-99999); GLUCOSE 90 mg/dL (70-99); PHOSPHORUS 3.1 mg/dL (2.5-4.9); TOTAL PROTEIN 5.7 G/DL (6.4-8.3); UREA NITROGEN (BUN) 18 mg/dL (9-23)
[2017-11-13 18:44] LABS: TROP-I INTERPRETATION NEGATIVE; TROPONIN-I 0.25 ng/mL (0.0-0.30)
[2017-11-14] VITALS (21 sets, daily range): BP systolic 95–134; BP diastolic 67–88
[2017-11-14 00:39] LABS: BASOPHIL (%) 0.1 % (0-1); EOSINOPHIL (%) 0 % (0-5); HEMATOCRIT 34.3 % (38.0-50.0); HEMOGLOBIN 11.7 G/DL (12.5-16.6); IMMATURE GRANULOCYTE (%) 0.7 % (0.0-0.7); LYMPHOCYTE COUNT 1.4 K/uL (1.0-2.8); MCH 28.3 PG (29.0-34.0); MCHC 34.1 G/DL (30.0-36.0); MCV 83.1 FL (86-99); MONOCYTE (%) 6.5 % (3-12); MONOCYTE COUNT 0.9 K/uL (0-0.8); NEUTROPHIL (%) 82.7 % (45-76); NEUTROPHIL COUNT 11.3 K/uL (1.8-6.4); PLATELET COUNT 306 K/uL (156-360); RBC DIS.WIDTH-CV 15.4 % (11.8-14.6); RBC DIS.WIDTH-SD 46.9 % (39-53); RED BLOOD COUNT 4.13 M/uL (4.00-5.50); WHITE BLOOD COUNT 13.7 K/uL (4.1-10.2)
[2017-11-14 00:45] LABS: INTER. NORMALIZED RATIO 1.1
[2017-11-14 00:51] LABS: CHLORIDE 115 mEq/L (99-109); POTASSIUM 3.7 mEq/L (3.7-5.4); SODIUM 143 mEq/L (136-147)
[2017-11-14 00:52] LABS: MAGNESIUM 1.8 mg/dL (1.3-2.7)
[2017-11-14 00:54] LABS: GLUCOSE 85 mg/dL (70-99)
[2017-11-14 00:57] LABS: CREATININE 0.9 mg/dL (0.6-1.3); GFR ESTIMATE (CALCULATED) > 59 mL/min/ (58.99-99999); PHOSPHORUS 2.9 mg/dL (2.5-4.9)
[2017-11-14 00:58] LABS: UREA NITROGEN (BUN) 19 mg/dL (9-23)
[2017-11-14 01:04] LABS: TROP-I INTERPRETATION NEGATIVE
[2017-11-14 04:56] LABS: BASOPHIL (%) 0.1 % (0-1); EOSINOPHIL (%) 0 % (0-5); HEMATOCRIT 34.2 % (38.0-50.0); HEMOGLOBIN 11.5 G/DL (12.5-16.6); IMMATURE GRANULOCYTE (%) 0.8 % (0.0-0.7); LYMPHOCYTE (%) 10.7 % (15-42); LYMPHOCYTE COUNT 1.3 K/uL (1.0-2.8); MCHC 33.6 G/DL (30.0-36.0); MCV 83.2 FL (86-99); MONOCYTE (%) 6.7 % (3-12); MONOCYTE COUNT 0.8 K/uL (0-0.8); NEUTROPHIL (%) 81.7 % (45-76); NEUTROPHIL COUNT 10.1 K/uL (1.8-6.4); PLATELET COUNT 294 K/uL (156-360); RBC DIS.WIDTH-CV 15.3 % (11.8-14.6); RED BLOOD COUNT 4.11 M/uL (4.00-5.50); WHITE BLOOD COUNT 12.3 K/uL (4.1-10.2)
[2017-11-14 05:00] LABS: INTER. NORMALIZED RATIO 1.1
[2017-11-14 05:13] LABS: CHLORIDE 115 mEq/L (99-109); POTASSIUM 3.4 mEq/L (3.7-5.4); SODIUM 144 mEq/L (136-147)
[2017-11-14 05:15] LABS: GLUCOSE 61 mg/dL (70-99)
[2017-11-14 05:18] LABS: PHOSPHORUS 2.8 mg/dL (2.5-4.9)
[2017-11-14 05:19] LABS: CREATININE 0.8 mg/dL (0.6-1.3); GFR ESTIMATE (CALCULATED) > 59 mL/min/ (58.99-99999)
[2017-11-14 05:20] LABS: TROP-I INTERPRETATION NEGATIVE; TROPONIN-I 0.16 ng/mL (0.0-0.30); UREA NITROGEN (BUN) 17 mg/dL (9-23)
[2017-11-14 05:23] LABS: BASE EXCESS 2.1 mEq/L (-3 to +3); METHEMOGLOBIN 1.5 % (0-1.5); PCO2 29 mm Hg (35-45); pH 7.53 (7.35-7.45)
[2017-11-14 05:24] LABS: BICARBONATE 24.2 mEq/L (22-26); COMMENTS - BLOOD GASES C+A+; DEVICE VENT; FI02 30 %; INSPIRATION TIME 0.9 seconds; MECHANICAL RATE 20 resp/min; MODE AC; PEEP 8 CM/H20; PO2 91 mm Hg (80-100); SITE LR; TIDAL VOLUME 700 ML; TOTAL RESP RATE 20 resp/min
[2017-11-14 08:24] LABS: MAGNESIUM 1.9 mg/dL (1.3-2.7)
[2017-11-14 09:54] LABS: TOTAL BILIRUBIN 0.3 mg/dL (0.0-1.0)
[2017-11-14 12:32] LABS: BASOPHIL (%) 0.1 % (0-1); EOSINOPHIL (%) 0 % (0-5); HEMATOCRIT 31.9 % (38.0-50.0); HEMOGLOBIN 10.5 G/DL (12.5-16.6); IMMATURE GRANULOCYTE (%) 0.8 % (0.0-0.7); LYMPHOCYTE (%) 8.5 % (15-42); LYMPHOCYTE COUNT 1.2 K/uL (1.0-2.8); MCH 28.2 PG (29.0-34.0); MCHC 32.9 G/DL (30.0-36.0); MCV 85.5 FL (86-99); MONOCYTE (%) 7.5 % (3-12); MONOCYTE COUNT 1.1 K/uL (0-0.8); NEUTROPHIL (%) 83.1 % (45-76); NEUTROPHIL COUNT 12.1 K/uL (1.8-6.4); PLATELET COUNT 259 K/uL (156-360); RBC DIS.WIDTH-CV 15.6 % (11.8-14.6); RBC DIS.WIDTH-SD 48.5 % (39-53); RED BLOOD COUNT 3.73 M/uL (4.00-5.50); WHITE BLOOD COUNT 14.6 K/uL (4.1-10.2)
[2017-11-14 12:37] LABS: INTER. NORMALIZED RATIO 1.2
[2017-11-14 12:57] LABS: TROP-I INTERPRETATION NEGATIVE; TROPONIN-I 0.13 ng/mL (0.0-0.30)
[2017-11-14 13:29] LABS: CHLORIDE 112 MEQ/L (99-109); CREATININE 0.9 MG/DL (0.6-1.3); GFR ESTIMATE (CALCULATED) > 59 mL/min/ (58.99-99999); MAGNESIUM 1.9 mg/dl (1.3-2.7); PHOSPHORUS 3.1 mg/dL (2.5-4.9); POTASSIUM 3.9 MEQ/L (3.7-5.4); SODIUM 144 MEQ/L (136-147); UREA NITROGEN (BUN) 15 mg/dL (9-23)
[2017-11-14 13:34] LABS: GLUCOSE 87 mg/dL (70-99)
[2017-11-14 17:44] LABS: BASOPHIL (%) 0.1 % (0-1); EOSINOPHIL (%) 0.3 % (0-5); HEMATOCRIT 31.9 % (38.0-50.0); HEMOGLOBIN 10.5 G/DL (12.5-16.6); IMMATURE GRANULOCYTE (%) 0.4 % (0.0-0.7); MCH 27.9 PG (29.0-34.0); MCHC 32.9 G/DL (30.0-36.0); MCV 84.8 FL (86-99); MONOCYTE (%) 6.7 % (3-12); MONOCYTE COUNT 0.8 K/uL (0-0.8); NEUTROPHIL (%) 83.5 % (45-76); NEUTROPHIL COUNT 9.7 K/uL (1.8-6.4); PLATELET COUNT 255 K/uL (156-360); RBC DIS.WIDTH-CV 15.7 % (11.8-14.6); RBC DIS.WIDTH-SD 48.4 % (39-53); RED BLOOD COUNT 3.76 M/uL (4.00-5.50); WHITE BLOOD COUNT 11.6 K/uL (4.1-10.2)
[2017-11-14 18:11] LABS: TROP-I INTERPRETATION NEGATIVE; TROPONIN-I 0.09 ng/mL (0.0-0.30)
[2017-11-14 18:16] LABS: INTER. NORMALIZED RATIO 1.2
[2017-11-14 18:38] LABS: CHLORIDE 114 MEQ/L (99-109); CREATININE 0.8 MG/DL (0.6-1.3); GFR ESTIMATE (CALCULATED) > 59 mL/min/ (58.99-99999); GLUCOSE 94 mg/dL (70-99); PHOSPHORUS 2.7 mg/dL (2.5-4.9); POTASSIUM 3.6 MEQ/L (3.7-5.4); SODIUM 141 MEQ/L (136-147); UREA NITROGEN (BUN) 14 mg/dL (9-23)
[2017-11-15] VITALS (18 sets, daily range): BP systolic 101–126; BP diastolic 69–85
[2017-11-15 00:31] LABS: BASOPHIL (%) 0.1 % (0-1); EOSINOPHIL (%) 0.5 % (0-5); EOSINOPHIL COUNT 0.1 K/uL (0-0.3); HEMATOCRIT 31.4 % (38.0-50.0); HEMOGLOBIN 10.5 G/DL (12.5-16.6); IMMATURE GRANULOCYTE (%) 0.6 % (0.0-0.7); LYMPHOCYTE (%) 5.9 % (15-42); LYMPHOCYTE COUNT 0.8 K/uL (1.0-2.8); MCH 28.5 PG (29.0-34.0); MCHC 33.4 G/DL (30.0-36.0); MCV 85.1 FL (86-99); MONOCYTE (%) 8.3 % (3-12); MONOCYTE COUNT 1.2 K/uL (0-0.8); NEUTROPHIL (%) 84.6 % (45-76); NEUTROPHIL COUNT 11.9 K/uL (1.8-6.4); PLATELET COUNT 267 K/uL (156-360); RBC DIS.WIDTH-CV 15.6 % (11.8-14.6); RBC DIS.WIDTH-SD 48.4 % (39-53); RED BLOOD COUNT 3.69 M/uL (4.00-5.50); WHITE BLOOD COUNT 14.1 K/uL (4.1-10.2)
[2017-11-15 00:37] LABS: INTER. NORMALIZED RATIO 1.1
[2017-11-15 00:44] LABS: CHLORIDE 112 mEq/L (99-109); POTASSIUM 3.5 mEq/L (3.7-5.4); SODIUM 140 mEq/L (136-147)
[2017-11-15 00:45] LABS: MAGNESIUM 1.8 mg/dL (1.3-2.7)
[2017-11-15 00:46] LABS: GLUCOSE 106 mg/dL (70-99)
[2017-11-15 00:50] LABS: CREATININE 0.8 mg/dL (0.6-1.3); GFR ESTIMATE (CALCULATED) > 59 mL/min/ (58.99-99999); PHOSPHORUS 2.8 mg/dL (2.5-4.9)
[2017-11-15 00:51] LABS: UREA NITROGEN (BUN) 13 mg/dL (9-23)
[2017-11-15 00:55] LABS: TROP-I INTERPRETATION NEGATIVE; TROPONIN-I 0.05 ng/mL (0.0-0.30)
[2017-11-15 05:59] LABS: BASOPHIL (%) 0.1 % (0-1); EOSINOPHIL (%) 0.7 % (0-5); EOSINOPHIL COUNT 0.1 K/uL (0-0.3); HEMATOCRIT 32.3 % (38.0-50.0); HEMOGLOBIN 10.5 G/DL (12.5-16.6); IMMATURE GRANULOCYTE (%) 0.4 % (0.0-0.7); LYMPHOCYTE (%) 6.4 % (15-42); LYMPHOCYTE COUNT 0.9 K/uL (1.0-2.8); MCH 28.4 PG (29.0-34.0); MCHC 32.5 G/DL (30.0-36.0); MCV 87.3 FL (86-99); MONOCYTE (%) 8.9 % (3-12); MONOCYTE COUNT 1.3 K/uL (0-0.8); NEUTROPHIL (%) 83.5 % (45-76); NEUTROPHIL COUNT 11.8 K/uL (1.8-6.4); PLATELET COUNT 254 K/uL (156-360); RBC DIS.WIDTH-CV 15.5 % (11.8-14.6); RBC DIS.WIDTH-SD 49.8 % (39-53); WHITE BLOOD COUNT 14.1 K/uL (4.1-10.2)
[2017-11-15 06:13] LABS: INTER. NORMALIZED RATIO 1.1
[2017-11-15 06:23] LABS: TROP-I INTERPRETATION NEGATIVE; TROPONIN-I 0.05 ng/mL (0.0-0.30)
[2017-11-15 06:36] LABS: CHLORIDE 112 MEQ/L (99-109); CREATININE 0.9 MG/DL (0.6-1.3); GFR ESTIMATE (CALCULATED) > 59 mL/min/ (58.99-99999); GLUCOSE 82 mg/dL (70-99); MAGNESIUM 2.1 mg/dl (1.3-2.7); PHOSPHORUS 2.9 mg/dL (2.5-4.9); POTASSIUM 3.8 MEQ/L (3.7-5.4); SODIUM 143 MEQ/L (136-147); UREA NITROGEN (BUN) 13 mg/dL (9-23)
[2017-11-15 12:28] LABS: INTER. NORMALIZED RATIO 1.1
[2017-11-15 12:29] LABS: BASOPHIL (%) 0.1 % (0-1); EOSINOPHIL (%) 1.2 % (0-5); EOSINOPHIL COUNT 0.2 K/uL (0-0.3); HEMATOCRIT 31.1 % (38.0-50.0); IMMATURE GRANULOCYTE (%) 0.6 % (0.0-0.7); LYMPHOCYTE (%) 7.7 % (15-42); LYMPHOCYTE COUNT 1.1 K/uL (1.0-2.8); MCH 27.8 PG (29.0-34.0); MCHC 32.2 G/DL (30.0-36.0); MCV 86.4 FL (86-99); MONOCYTE COUNT 1.1 K/uL (0-0.8); NEUTROPHIL (%) 82.4 % (45-76); NEUTROPHIL COUNT 11.4 K/uL (1.8-6.4); PLATELET COUNT 233 K/uL (156-360); RBC DIS.WIDTH-CV 15.4 % (11.8-14.6); RBC DIS.WIDTH-SD 48.9 % (39-53); WHITE BLOOD COUNT 13.8 K/uL (4.1-10.2)
[2017-11-15 12:44] LABS: HIV 1 Antibody Positive (Negative); HIV 2 Antibody Negative (Negative)
[2017-11-15 12:45] LABS: TROP-I INTERPRETATION NEGATIVE; TROPONIN-I 0.03 ng/mL (0.0-0.30)
[2017-11-15 13:09] LABS: CHLORIDE 113 MEQ/L (99-109); CREATININE 0.9 MG/DL (0.6-1.3); GFR ESTIMATE (CALCULATED) > 59 mL/min/ (58.99-99999); PHOSPHORUS 2.6 mg/dL (2.5-4.9); POTASSIUM 3.6 MEQ/L (3.7-5.4); SODIUM 141 MEQ/L (136-147); UREA NITROGEN (BUN) 13 mg/dL (9-23)
[2017-11-15 13:24] LABS: GLUCOSE 146 mg/dL (70-99)
[2017-11-15 17:50] LABS: BASOPHIL (%) 0.1 % (0-1); EOSINOPHIL (%) 1.5 % (0-5); EOSINOPHIL COUNT 0.2 K/uL (0-0.3); HEMATOCRIT 30.3 % (38.0-50.0); HEMOGLOBIN 9.8 G/DL (12.5-16.6); IMMATURE GRANULOCYTE (%) 0.6 % (0.0-0.7); LYMPHOCYTE (%) 7.2 % (15-42); LYMPHOCYTE COUNT 0.9 K/uL (1.0-2.8); MCH 27.9 PG (29.0-34.0); MCHC 32.3 G/DL (30.0-36.0); MCV 86.3 FL (86-99); MONOCYTE (%) 8.2 % (3-12); MONOCYTE COUNT 1.1 K/uL (0-0.8); NEUTROPHIL (%) 82.4 % (45-76); NEUTROPHIL COUNT 10.6 K/uL (1.8-6.4); PLATELET COUNT 220 K/uL (156-360); RBC DIS.WIDTH-CV 15.6 % (11.8-14.6); RBC DIS.WIDTH-SD 49.5 % (39-53); RED BLOOD COUNT 3.51 M/uL (4.00-5.50); WHITE BLOOD COUNT 12.8 K/uL (4.1-10.2)
[2017-11-15 18:20] LABS: TROP-I INTERPRETATION NEGATIVE; TROPONIN-I 0.03 ng/mL (0.0-0.30)
[2017-11-15 18:22] LABS: CHLORIDE 113 MEQ/L (99-109); CREATININE 0.9 MG/DL (0.6-1.3); GFR ESTIMATE (CALCULATED) > 59 mL/min/ (58.99-99999); GLUCOSE 147 mg/dL (70-99); PHOSPHORUS 2.4 mg/dL (2.5-4.9); POTASSIUM 3.8 MEQ/L (3.7-5.4); SODIUM 140 MEQ/L (136-147); UREA NITROGEN (BUN) 13 mg/dL (9-23)
[2017-11-16] VITALS (22 sets, daily range): BP systolic 99–116; BP diastolic 63–85
[2017-11-16 00:38] LABS: BASOPHIL (%) 0.1 % (0-1); EOSINOPHIL (%) 1.7 % (0-5); EOSINOPHIL COUNT 0.2 K/uL (0-0.3); HEMATOCRIT 29.1 % (38.0-50.0); HEMOGLOBIN 9.6 G/DL (12.5-16.6); IMMATURE GRANULOCYTE (%) 0.6 % (0.0-0.7); LYMPHOCYTE (%) 9.1 % (15-42); MCH 28.1 PG (29.0-34.0); MCV 85.1 FL (86-99); MONOCYTE (%) 10.6 % (3-12); MONOCYTE COUNT 1.2 K/uL (0-0.8); NEUTROPHIL (%) 77.9 % (45-76); NEUTROPHIL COUNT 8.6 K/uL (1.8-6.4); PLATELET COUNT 215 K/uL (156-360); RBC DIS.WIDTH-CV 15.4 % (11.8-14.6); RBC DIS.WIDTH-SD 48.4 % (39-53); RED BLOOD COUNT 3.42 M/uL (4.00-5.50); WHITE BLOOD COUNT 11.1 K/uL (4.1-10.2)
[2017-11-16 00:47] LABS: CHLORIDE 114 mEq/L (99-109); SODIUM 139 mEq/L (136-147)
[2017-11-16 00:48] LABS: MAGNESIUM 1.8 mg/dL (1.3-2.7)
[2017-11-16 00:53] LABS: CREATININE 0.8 mg/dL (0.6-1.3); GFR ESTIMATE (CALCULATED) > 59 mL/min/ (58.99-99999); PHOSPHORUS 2.7 mg/dL (2.5-4.9)
[2017-11-16 00:54] LABS: UREA NITROGEN (BUN) 12 mg/dL (9-23)
[2017-11-16 01:01] LABS: TROP-I INTERPRETATION NEGATIVE; TROPONIN-I 0.03 ng/mL (0.0-0.30)
[2017-11-16 01:02] LABS: GLUCOSE 108 mg/dL (70-99)
[2017-11-16 06:26] LABS: CHLORIDE 114 MEQ/L (99-109); CREATININE 0.8 MG/DL (0.6-1.3); GFR ESTIMATE (CALCULATED) > 59 mL/min/ (58.99-99999); GLUCOSE 122 mg/dL (70-99); MAGNESIUM 2.1 mg/dl (1.3-2.7); PHOSPHORUS 2.4 mg/dL (2.5-4.9); POTASSIUM 4.4 MEQ/L (3.7-5.4); SODIUM 141 MEQ/L (136-147); UREA NITROGEN (BUN) 13 mg/dL (9-23)
[2017-11-16 06:27] LABS: TROP-I INTERPRETATION NEGATIVE; TROPONIN-I 0.02 ng/mL (0.0-0.30)
[2017-11-16 20:22] LABS: PTT 26.4 SEC (25-37)
[2017-11-17] VITALS (24 sets, daily range): BP systolic 107–125; BP diastolic 65–86
[2017-11-17 03:51] LABS: AP Bone Isoenzyme 34 % (28-66); AP Intestine Isoenzyme 0 % (1-24); AP Liver Isoenzyme 66 % (25-69); AP Macrohepatic Isoenzyme 0 % (<=0); AP Placental Isoenzyme 0 % (<=0); Alkaline Phosphatase, Total 53 U/L (40-115)
[2017-11-17 06:15] LABS: CHLORIDE 111 MEQ/L (99-109); POTASSIUM 4.2 MEQ/L (3.7-5.4); SODIUM 139 MEQ/L (136-147)
[2017-11-17 06:21] LABS: CREATININE 0.7 MG/DL (0.6-1.3); GFR ESTIMATE (CALCULATED) > 59 mL/min/ (58.99-99999); GLUCOSE 97 mg/dL (70-99); UREA NITROGEN (BUN) 11 mg/dL (9-23)
[2017-11-17 06:41] LABS: BASOPHIL (%) 0.2 % (0-1); EOSINOPHIL (%) 2.7 % (0-5); EOSINOPHIL COUNT 0.2 K/uL (0-0.3); HEMATOCRIT 29.8 % (38.0-50.0); HEMOGLOBIN 9.6 G/DL (12.5-16.6); IMMATURE GRANULOCYTE (%) 0.7 % (0.0-0.7); LYMPHOCYTE (%) 14.2 % (15-42); LYMPHOCYTE COUNT 1.2 K/uL (1.0-2.8); MCH 27.7 PG (29.0-34.0); MCHC 32.2 G/DL (30.0-36.0); MCV 85.9 FL (86-99); MONOCYTE (%) 14.8 % (3-12); MONOCYTE COUNT 1.2 K/uL (0-0.8); NEUTROPHIL (%) 67.4 % (45-76); NEUTROPHIL COUNT 5.4 K/uL (1.8-6.4); PLATELET COUNT 235 K/uL (156-360); RBC DIS.WIDTH-CV 15.5 % (11.8-14.6); RBC DIS.WIDTH-SD 48.3 % (39-53); RED BLOOD COUNT 3.47 M/uL (4.00-5.50); WHITE BLOOD COUNT 8.1 K/uL (4.1-10.2)
[2017-11-17 11:55] LABS: CD19 Percentage 9 % (6-29); CD19, Absolute 79 cells/uL (110-660); CD3 Percentage 84 % (57-85); CD3, Absolute 771 cells/uL (840-3060); CD4 Percentage 53 % (30-61); CD4, Absolute 493 cells/uL (490-1740); CD4/CD8 Ratio 1.64 (0.86-5.00); CD8 Percentage 32 % (12-42); CD8, Absolute 300 cells/uL (180-1170); Lymphocytes, Absolute 919 cells/uL (850-3900)
[2017-11-18] VITALS (21 sets, daily range): BP systolic 108–148; BP diastolic 63–95
[2017-11-18 08:04] LABS: ALBUMIN 2.3 G/DL (3.2-4.8); ALKALINE PHOSPHATASE 55 IU/L (3-129); ALT (GPT) 23 IU/L (3-49); CHLORIDE 108 MEQ/L (99-109); CREATININE 0.7 MG/DL (0.6-1.3); GFR ESTIMATE (CALCULATED) > 59 mL/min/ (58.99-99999); GLUCOSE 86 mg/dL (70-99); POTASSIUM 3.9 MEQ/L (3.7-5.4); SODIUM 137 MEQ/L (136-147); TOTAL BILIRUBIN 0.2 MG/DL (0.0-1.0); TOTAL PROTEIN 4.9 G/DL (6.4-8.3); UREA NITROGEN (BUN) 11 mg/dL (9-23)
[2017-11-18 08:08] LABS: AST (GOT) 33 IU/L (2-34)
[2017-11-19] VITALS (19 sets, daily range): BP systolic 87–124; BP diastolic 49–79
[2017-11-20] VITALS (24 sets, daily range): BP systolic 89–115; BP diastolic 57–74
[2017-11-20 05:47] LABS: HEMATOCRIT 31.2 % (38.0-50.0); HEMOGLOBIN 10.3 G/DL (12.5-16.6); MCH 27.3 PG (29.0-34.0); MCV 82.8 FL (86-99); PLATELET COUNT 296 K/uL (156-360); RBC DIS.WIDTH-CV 14.5 % (11.8-14.6); RBC DIS.WIDTH-SD 43.6 % (39-53); RED BLOOD COUNT 3.77 M/uL (4.00-5.50)
[2017-11-21] VITALS (23 sets, daily range): BP systolic 102–132; BP diastolic 61–78
[2017-11-21 08:01] LABS: ALBUMIN 2.6 G/DL (3.2-4.8); BASOPHIL (%) 0.3 % (0-1); EOSINOPHIL (%) 2.3 % (0-5); EOSINOPHIL COUNT 0.2 K/uL (0-0.3); HEMATOCRIT 25.9 % (38.0-50.0); HEMOGLOBIN 8.6 G/DL (12.5-16.6); IMMATURE GRANULOCYTE (%) 1.5 % (0.0-0.7); LYMPHOCYTE COUNT 1.4 K/uL (1.0-2.8); MCH 28.5 PG (29.0-34.0); MCHC 33.2 G/DL (30.0-36.0); MCV 85.8 FL (86-99); MONOCYTE (%) 16.3 % (3-12); MONOCYTE COUNT 1.3 K/uL (0-0.8); NEUTROPHIL (%) 61.6 % (45-76); NEUTROPHIL COUNT 4.8 K/uL (1.8-6.4); RBC DIS.WIDTH-CV 14.7 % (11.8-14.6); RBC DIS.WIDTH-SD 46.1 % (39-53); RED BLOOD COUNT 3.02 M/uL (4.00-5.50); WHITE BLOOD COUNT 7.8 K/uL (4.1-10.2)
[2017-11-21 08:32] LABS: ALKALINE PHOSPHATASE 84 IU/L (3-129); ALT (GPT) 26 IU/L (3-49); AST (GOT) 40 IU/L (2-34); CHLORIDE 112 MEQ/L (99-109); CREATININE 0.8 MG/DL (0.6-1.3); GFR ESTIMATE (CALCULATED) > 59 mL/min/ (58.99-99999); GLUCOSE 98 mg/dL (70-99); MAGNESIUM 1.8 mg/dl (1.3-2.7); PHOSPHORUS 3.1 mg/dL (2.5-4.9); POTASSIUM 3.5 MEQ/L (3.7-5.4); SODIUM 141 MEQ/L (136-147); TOTAL PROTEIN 5.6 G/DL (6.4-8.3); UREA NITROGEN (BUN) 7 mg/dL (9-23)
[2017-11-21 08:33] LABS: ANISOCYTOSIS 1+; MICROCYTOSIS 1+; PLAT.SUFFICIENCY ADEQUATE; PLATELET COUNT 351 K/uL (156-360)
[2017-11-21 08:38] LABS: TOTAL BILIRUBIN 0.3 MG/DL (0.0-1.0)
[2017-11-22] VITALS (21 sets, daily range): BP systolic 90–133; BP diastolic 44–82
[2017-11-22 05:34] LABS: BASE EXCESS -1.9 mEq/L (-3 to +3); BICARBONATE 21.3 mEq/L (22-26); CARBOXY HGB 0.9 % (0-5); METHEMOGLOBIN 1.1 % (0-1.5); PCO2 30 mm Hg (35-45); pH 7.46 (7.35-7.45)
[2017-11-22 05:35] LABS: DEVICE 840; FI02 30 %; MECHANICAL RATE 12 resp/min; MODE AC/VC+; PO2 127 mm Hg (80-100); SITE LR; TOTAL RESP RATE 12 resp/min
[2017-11-22 05:36] LABS: PEEP 5 CM/H20; TIDAL VOLUME 700 ML
[2017-11-22 05:52] LABS: HEMATOCRIT 28.6 % (38.0-50.0); HEMOGLOBIN 9.4 G/DL (12.5-16.6); MCH 27.6 PG (29.0-34.0); MCHC 32.9 G/DL (30.0-36.0); MCV 84.1 FL (86-99); PLATELET COUNT 307 K/uL (156-360); RBC DIS.WIDTH-CV 14.6 % (11.8-14.6); RBC DIS.WIDTH-SD 44.9 % (39-53); WHITE BLOOD COUNT 6.2 K/uL (4.1-10.2)
[2017-11-22 06:17] LABS: CHLORIDE 116 MEQ/L (99-109); CREATININE 0.7 MG/DL (0.6-1.3); GFR ESTIMATE (CALCULATED) > 59 mL/min/ (58.99-99999); GLUCOSE 91 mg/dL (70-99); MAGNESIUM 1.8 mg/dl (1.3-2.7); PHOSPHORUS 3.4 mg/dL (2.5-4.9); POTASSIUM 3.3 MEQ/L (3.7-5.4); SODIUM 145 MEQ/L (136-147); UREA NITROGEN (BUN) 8 mg/dL (9-23)
[2017-11-23] VITALS (22 sets, daily range): BP systolic 94–148; BP diastolic 55–81
[2017-11-24] VITALS (24 sets, daily range): BP systolic 85–181; BP diastolic 48–91
[2017-11-24 07:36] LABS: HEMATOCRIT 31.2 % (38.0-50.0); HEMOGLOBIN 10.1 G/DL (12.5-16.6); MCH 27.2 PG (29.0-34.0); MCHC 32.4 G/DL (30.0-36.0); MCV 83.9 FL (86-99); PLATELET COUNT 309 K/uL (156-360); RBC DIS.WIDTH-CV 14.7 % (11.8-14.6); RBC DIS.WIDTH-SD 45.1 % (39-53); RED BLOOD COUNT 3.72 M/uL (4.00-5.50); WHITE BLOOD COUNT 7.5 K/uL (4.1-10.2)
[2017-11-24 15:05] LABS: BASE EXCESS -1.4 mEq/L (-3 to +3); BICARBONATE 22.2 mEq/L (22-26); CARBOXY HGB 0.9 % (0-5); METHEMOGLOBIN 1.4 % (0-1.5); PCO2 32 mm Hg (35-45); PO2 121 mm Hg (80-100); SITE RB; pH 7.45 (7.35-7.45)
[2017-11-24 15:06] LABS: COMMENTS - BLOOD GASES NA C+; DEVICE VENT; FI02 30 %; INSPIRATION TIME 1.3 seconds; MECHANICAL RATE 12 resp/min; MODE AC/VC; PEEP 5 CM/H20; TIDAL VOLUME 500 ML; TOTAL RESP RATE 12 resp/min
[2017-11-24 16:16] LABS: BASOPHIL (%) 0.1 % (0-1); EOSINOPHIL COUNT 0.3 K/uL (0-0.3); HEMATOCRIT 26.8 % (38.0-50.0); HEMOGLOBIN 8.7 G/DL (12.5-16.6); IMMATURE GRANULOCYTE (%) 0.7 % (0.0-0.7); LYMPHOCYTE (%) 20.1 % (15-42); LYMPHOCYTE COUNT 1.4 K/uL (1.0-2.8); MCH 27.8 PG (29.0-34.0); MCHC 32.5 G/DL (30.0-36.0); MCV 85.6 FL (86-99); MONOCYTE (%) 15.3 % (3-12); NEUTROPHIL (%) 59.8 % (45-76); NEUTROPHIL COUNT 4.1 K/uL (1.8-6.4); PLATELET COUNT 324 K/uL (156-360); RBC DIS.WIDTH-CV 14.8 % (11.8-14.6); RBC DIS.WIDTH-SD 46.5 % (39-53); RED BLOOD COUNT 3.13 M/uL (4.00-5.50); WHITE BLOOD COUNT 6.8 K/uL (4.1-10.2)
[2017-11-24 16:39] LABS: CHLORIDE 112 MEQ/L (99-109); CREATININE 0.8 MG/DL (0.6-1.3); GFR ESTIMATE (CALCULATED) > 59 mL/min/ (58.99-99999); GLUCOSE 88 mg/dL (70-99); MAGNESIUM 1.7 mg/dl (1.3-2.7); PHOSPHORUS 3.5 mg/dL (2.5-4.9); POTASSIUM 3.5 MEQ/L (3.7-5.4); SODIUM 141 MEQ/L (136-147); UREA NITROGEN (BUN) 7 mg/dL (9-23)
[2017-11-25] VITALS (20 sets, daily range): BP systolic 109–159; BP diastolic 64–90
[2017-11-26] VITALS (20 sets, daily range): BP systolic 107–145; BP diastolic 53–82
[2017-11-27] VITALS (14 sets, daily range): BP systolic 107–139; BP diastolic 68–87
[2017-11-27 06:27] LABS: BASOPHIL (%) 0.4 % (0-1); EOSINOPHIL (%) 2.3 % (0-5); EOSINOPHIL COUNT 0.1 K/uL (0-0.3); HEMATOCRIT 30.3 % (38.0-50.0); HEMOGLOBIN 9.8 G/DL (12.5-16.6); IMMATURE GRANULOCYTE (%) 0.4 % (0.0-0.7); LYMPHOCYTE (%) 20.5 % (15-42); LYMPHOCYTE COUNT 1.1 K/uL (1.0-2.8); MCH 27.1 PG (29.0-34.0); MCHC 32.3 G/DL (30.0-36.0); MCV 83.7 FL (86-99); MONOCYTE (%) 16.7 % (3-12); MONOCYTE COUNT 0.9 K/uL (0-0.8); NEUTROPHIL (%) 59.7 % (45-76); NEUTROPHIL COUNT 3.1 K/uL (1.8-6.4); PLATELET COUNT 358 K/uL (156-360); RBC DIS.WIDTH-CV 14.1 % (11.8-14.6); RBC DIS.WIDTH-SD 43.2 % (39-53); RED BLOOD COUNT 3.62 M/uL (4.00-5.50); WHITE BLOOD COUNT 5.2 K/uL (4.1-10.2)
[2017-11-27 06:47] LABS: CHLORIDE 108 MEQ/L (99-109); CREATININE 0.8 MG/DL (0.6-1.3); GFR ESTIMATE (CALCULATED) > 59 mL/min/ (58.99-99999); GLUCOSE 93 mg/dL (70-99); MAGNESIUM 1.8 mg/dl (1.3-2.7); PHOSPHORUS 2.8 mg/dL (2.5-4.9); POTASSIUM 3.8 MEQ/L (3.7-5.4); SODIUM 142 MEQ/L (136-147); UREA NITROGEN (BUN) 14 mg/dL (9-23)
[2017-11-28] VITALS (21 sets, daily range): BP systolic 86–138; BP diastolic 54–80
[2017-11-29] VITALS (11 sets, daily range): BP systolic 98–114; BP diastolic 57–78
[2017-11-29 05:55] LABS: HEMATOCRIT 34.7 % (38.0-50.0); HEMOGLOBIN 11.1 G/DL (12.5-16.6); MCH 27.3 PG (29.0-34.0); MCV 85.5 FL (86-99); PLATELET COUNT 335 K/uL (156-360); RBC DIS.WIDTH-CV 14.3 % (11.8-14.6); RBC DIS.WIDTH-SD 44.9 % (39-53); RED BLOOD COUNT 4.06 M/uL (4.00-5.50); WHITE BLOOD COUNT 5.7 K/uL (4.1-10.2)
[2017-11-29] MEDS ORDERED: LOVENOX40 MG/0.4 SC (09:14)
[2017-11-29] MEDS ORDERED: Tylenol GT (09:15)
[2017-11-29] MEDS ORDERED: Dilantin GT (09:16)
[2017-11-29] MEDS ORDERED: LEVETIRACE100 MG/1 M GT (09:16)
[2017-11-29] MEDS ORDERED: CLONAZEPAM1 MG GT (09:16)
[2017-11-29] MEDS ORDERED: NATURAL BALANCE15 M1 BOTH EYES (09:17)
[2017-11-29] MEDS ORDERED: BISAC-EVAC10 MG PR (09:18)
[2017-11-29] MEDS ORDERED: LUBRIFRESH PM3.5 GM BOTH EYES (09:18)
[2017-11-29] MEDS ORDERED: DOCU LIQUI50 MG/5 ML GT (09:18)
[2017-11-29] MEDS ORDERED: FAMOTIDINE20 MG GT (09:19)
[2017-11-29] MEDS ORDERED: POLYETHYLENE GL17 GM GT (09:19)
[2017-11-29] MEDS ORDERED: METOCLOPRAMIDE10 MG GT (09:19)
== END 2017-11-29 12:11 | disposition other institution (70) | DRG 4 ==
LOC: EME 03:57 → EDBD 03:57 → EDOF 06:43 → 4WEST 06:43 → ENRESERV 06:45 → EDOF 07:06 → 4WEST 07:56
PROVIDERS: Emergency Medicine; Internal Medicine Critical Care Medicine; Specialist
DX: I46.9 Cardiac arrest, cause unspecified (principal); F41.9 Anxiety disorder, unspecified; G93.1 Anoxic brain damage, not elsewhere classified; J69.0 Pneumonitis due to inhalation of food and vomit; J96.90 Respiratory failure, unspecified, unspecified whether with hypoxia or hypercapnia; E87.2 Acidosis; F10.229 Alcohol dependence with intoxication, unspecified; R74.0 Nonspecific elevation of levels of transaminase and lactic acid dehydrogenase [LDH]; R13.10 Dysphagia, unspecified; R40.20 Unspecified coma; F14.10 Cocaine abuse, uncomplicated; F17.200 Nicotine dependence, unspecified, uncomplicated; F13.10 Sedative, hypnotic or anxiolytic abuse, uncomplicated; F32.9 Major depressive disorder, single episode, unspecified; I10 Essential (primary) hypertension; B19.20 Unspecified viral hepatitis C without hepatic coma; E16.2 Hypoglycemia, unspecified; E87.0 Hyperosmolality and hypernatremia; J96.01 Acute respiratory failure with hypoxia; Z66 Do not resuscitate; R40.3 Persistent vegetative state; Z88.8 Allergy status to other drugs, medicaments and biological substances; Z59.0 Homelessness; K56.7 Ileus, unspecified; G40.901 Epilepsy, unspecified, not intractable, with status epilepticus; Z21 Asymptomatic human immunodeficiency virus [HIV] infection status; I49.01 Ventricular fibrillation; B20 Human immunodeficiency virus [HIV] disease
CPT/HCPCS: 36600; 36620; 70450; 71010; 71045; 74018; 80047; 80048; 80048 91; 80053; 80074; 80076; 80185; 81003; 82040; 82140; 82247; 82330; 82803; 82948; 83605; 83690; 83735; 83880; 84075 90; 84080 90; 84100; 84450; 84460; 84484; 84999; 85025; 85025 91; 85027; 85610; 85730; 86355 90; 86359 90; 86360 90; 86701 90; 86702 90; 86703; 87040; 87070; 87077; 87116; 87147; 87186; 87205; 87206; 87449; 87641; 93005; 93971; 94002; 94003; 95819; 99281; 99285; C1751; C1753; G0480; J0282; J0456; J0610; J0690; J1165; J1650; J1815; J1953; J2060; J2250; J2543; J2704; J3010; J3370; J3411; J3475; J3480; J7040; J7050; J7120; S0028